=== PATIENT | female | born 1985 | race Caucasian/White ===

== ENCOUNTER 2017-05-25 12:12 | Emergency (ER) | payer OTHER, MEDICAID ==
[2017-05-25] MEDS ORDERED: CEFTRIAXONE INJ 1000 MG VIAL IM ONE (12:41)
[2017-05-25] MEDS ORDERED: AZITHROMYCIN 250 MG TABLET PO ONE (12:41)
[2017-05-25] MEDS ORDERED: LIDOCAINE 1% INJ-PF (10 MG/ML) 30 ML SDV INJ ONE (12:41)
--- NOTE | 2017-05-25 12:43 | ER Document Report ---
HPI - HPI Patient complains to provider of: abscess Onset: Yesterday Onset/Duration: Worse Quality of pain: Sharp Pain Level: 5 Context: Patient complains of abscess to right labia that started yesterday. Patient denies any fever. Patient denies any concern for sexually transmitted infection Associated Symptoms: Other - Right labial abscess. denies: Fever Exacerbated by: Movement Relieved by: Denies Similar symptoms previously: No Recently seen / treated by doctor: No - ROS ROS below otherwise negative: Yes Systems Reviewed and Negative: Yes All other systems reviewed and negative - CONSTITUTIONAL Constitutional: DENIES: Fever, Chills - CARDIOVASCULAR Cardiovascular: DENIES: Chest pain - DERM Skin Color: Normal Notes: Abscess to right labia Past Medical History - General Information source: Patient - Social History Smoking Status: Current Every Day Smoker Chew tobacco use (# tins/day): No Frequency of alcohol use: None Drug Abuse: None Family History: Reviewed & Not Pertinent Renal/ Medical History: Denies: Hx Peritoneal Dialysis Past Surgical History: Reports: Hx Orthopedic Surgery - Immunizations Hx Diphtheria, Pertussis, Tetanus Vaccination: Yes Vertical Provider Document - CONSTITUTIONAL Agree With Documented VS: Yes Exam Limitations: No Limitations General Appearance: WD/WN, No Apparent Distress - INFECTION CONTROL TRAVEL OUTSIDE OF THE [place] IN LAST 30 DAYS: No - HEENT HEENT: Atraumatic, Normocephalic - NECK Neck: Normal Inspection - RESPIRATORY Respiratory: Breath Sounds Normal, No Respiratory Distress O2 Sat by Pulse Oximetry: 98 - CARDIOVASCULAR Cardiovascular: Regular Rate, Regular Rhythm - REPRODUCTIVE Notes: Right-sided Bartholin's gland abscess measuring 3 cm diameter - MUSCULOSKELETAL/EXTREMETIES Musculoskeletal/Extremeties: MAEW - NEURO Level of Consciousness: Awake, Alert, Appropriate Motor/Sensory: No Motor Deficit - DERM Integumentary: Warm, Dry Course - Vital Signs Vital signs: Temp Pulse Resp BP Pulse Ox 98.3 F 74 20 114/69 98 05/25/17 12:17 05/25/17 12:17 05/25/17 12:17 05/25/17 12:17 05/25/17 12:17 Procedures - Incision and Drainage Right Labia Type: Simple Anesthetic type: 1% Lidocaine Blade size: 11 I&D procedure: Shurclens applied Incision Method: Incision made by scalpel Amount/type of drainage: large amount of purulent drainage Female anatomy: 1 - abscess Discharge - Discharge Clinical Impression: Abscess of Bartholin's gland Condition: Stable Disposition: HOME, SELF-CARE Instructions: Abscess ([facility]), Anti-Inflammatory Medication ([facility]), Augmentin ([facility] ), Post Incision and Drainage Additional Instructions: Return immediately for any new or worsening symptoms Followup with your primary care provider, call tomorrow to make a followup appointment Prescriptions: Amox Tr/Potassium Clavulanate [Augmentin 875-125 Tablet] 1 tab PO BID 10 Days tablet Naproxen [Naprosyn 250 Nmg Tablet] 1 tab PO BID #14 tablet Referrals: [facility] [Provider Group] - Follow up as needed
[2017-05-25 13:59] VITALS: BP 112/55
== END 2017-05-25 13:59 | disposition home or self-care (01) ==
LOC: ER 12:12
PROC: 0U9L0ZZ Drainage of Vestibular Gland, Open Approach (ICD-10-PCS; principal; 2017-05-25)
DX: N75.8 Other diseases of Bartholin's gland (principal)
CPT/HCPCS: 99283; 96372; 56420; J3490; J0696

== ENCOUNTER 2017-05-31 08:37 | Emergency (ER) | payer OTHER, MEDICAID ==
--- NOTE | 2017-05-31 09:06 | ER Document Report ---
ED Neck/Back Problem - General Chief Complaint: Back Pain Stated Complaint: BACK PAIN Time Seen by Provider: 05/31/17 09:06 Mode of Arrival: Ambulatory Information source: Patient Notes: 31-year-old female complaining of feeling like her back hardware is poking out of her low back and increased right lower back pain. She has extensive surgery with Garcia rods 5 years ago in [place] for severe scoliosis which caused her to not be able to walk. She moved to [place] and is living in the homeless long-term at this time. She is having to walk a lot because she does not have money for cab and is worried because her legs are getting weaker with some numbness below the right knee. She was told by the back surgeon when he saw her in December that she needed to have the hardware removed and she is very scared about having that done. TRAVEL OUTSIDE OF THE [place] IN LAST 30 DAYS: No - Related Data Allergies/Adverse Reactions: Sulfa (Sulfonamide Antibiotics) Allergy (Verified 05/31/17 08:40) Past Medical History - General Information source: Patient - Social History Smoking Status: Unknown if Ever Smoked Frequency of alcohol use: None Drug Abuse: None Occupation: Unemployed Lives with: Homeless - [facility] Family History: Reviewed & Not Pertinent Patient has suicidal ideation: No Patient has homicidal ideation: No Renal/ Medical History: Denies: Hx Peritoneal Dialysis Musculoskeltal Medical History: Reports Other - Scoliosis Past Surgical History: Reports: Hx Orthopedic Surgery - Garcia rods in back - Immunizations Hx Diphtheria, Pertussis, Tetanus Vaccination: Yes Review of Systems - Review of Systems Constitutional: No symptoms reported EENT: No symptoms reported Cardiovascular: No symptoms reported Respiratory: No symptoms reported Gastrointestinal: No symptoms reported Genitourinary: No symptoms reported Female Genitourinary: No symptoms reported Musculoskeletal: See HPI Skin: No symptoms reported Hematologic/Lymphatic: No symptoms reported Neurological/Psychological: No symptoms reported Physical Exam - Vital signs Vitals: Temp Pulse Resp BP Pulse Ox 98.0 F 87 18 116/78 99 05/31/17 08:40 05/31/17 08:40 05/31/17 08:40 05/31/17 08:40 05/31/17 08:40 Interpretation: Normal - General General appearance: Appears well, Alert In distress: None - HEENT Head: Normocephalic, Atraumatic Eyes: Normal Pupils: PERRL Neck: Supple - Respiratory Respiratory status: No respiratory distress Chest status: Nontender Breath sounds: Normal Chest palpation: Normal - Cardiovascular Rhythm: Regular Heart sounds: Normal auscultation Murmur: No - Abdominal Inspection: Normal Distension: No distension Bowel sounds: Normal Tenderness: Nontender Organomegaly: No organomegaly - Genitourinary External exam: Other - Vulvar and anal sensation intact - Back Back: Normal, Nontender, Tender - right proximal lumbar muscle tender, Other - hardward palpated both SI areas, no erythema. No: Vertebra tenderness - Extremities General upper extremity: Normal inspection, Nontender, Normal color, Normal ROM , Normal temperature General lower extremity: Normal inspection, Nontender, Normal color, Normal ROM , Normal temperature, Normal weight bearing. No: Luis Felipe's sign - Neurological Neuro grossly intact: Yes Cognition: Normal Orientation: AAOx4 [place] Coma Scale Eye Opening: Spontaneous [place] Coma Scale Verbal: Oriented [place] Coma Scale Motor: Obeys Commands [place] Coma Scale Total: 15 Speech: Normal Motor strength normal: LUE, RUE, LLE, RLE Sensory: Normal Knee - Reflex grade: 2 = Normal - Bilateral Ankle - Reflex grade: 2 = Normal - Bilateral - Psychological Associated symptoms: Normal affect, Normal mood - Skin Skin Temperature: Warm Skin Moisture: Dry Skin Color: Normal Course - Re-evaluation Re-evalutation: 05/31/17 10:19 hardware ok, some disc disease L5S1. Patient does not want anything for pain at this time and I will give her the referrals for orthopedic care here in [place] since she is moving to [place]. Told her about also give her a referral to pain management. 05/31/17 10:20 - Vital Signs Vital signs: Temp Pulse Resp BP Pulse Ox 98 F 82 18 115/76 99 05/31/17 10:37 05/31/17 10:37 05/31/17 10:37 05/31/17 10:37 05/31/17 10:37 Discharge - Discharge Clinical Impression: Exacerbation of chronic back pain Condition: Good Disposition: HOME, SELF-CARE Instructions: Chronic Back Pain ([facility]) Additional Instructions: over the counter motrin and tylenol for pain referral to pain management and orthopedics to er if worsening symptoms or any concerns Please complete the patient satisfaction survey if you get one, and return it.. If you do not receive a survey, then you can go to the [facility] website, [email or web address] and place your comments about your very good care. Thank you very much. It was a pleasure being your medical provider today. Referrals: JADA AVILEZ MD [ACTIVE STAFF] - Follow up as needed JONATHAN REYNA MD [NO LOCAL MD] - Follow up as needed AURORA MARTIN MD [ACTIVE STAFF] - Follow up as needed
--- NOTE | 2017-05-31 10:04 | RADIOLOGY REPORT (SQ) ---
EXAM DESCRIPTION: T SPINE AP/LAT COMPLETED DATE/TIME: 05/31/2017 9:54 am REASON FOR STUDY: check the hardware COMPARISON: None. NUMBER OF VIEWS: Two views. TECHNIQUE: AP and lateral radiographic images acquired of the thoracic spine. LIMITATIONS: None. FINDINGS: MINERALIZATION: Normal. ALIGNMENT: Normal. No scoliosis. VERTEBRAE: No fracture or bone lesion. Maintained height, normal segmentation. DISCS: No significant loss of height or significant narrowing. No large osteophytes. HARDWARE: Extensive hardware with multiple Garcia rods and screw fixation device. No fractures n oted. MEDIASTINUM AND SOFT TISSUES: Normal heart size and aortic contour. No soft tissue abnormality. VISUALIZED LUNG DWYER: Clear. OTHER: No other significant finding. IMPRESSION: No hardware fracture is identified. No acute bony process. TECHNICAL DOCUMENTATION: JOB ID: [id number] [employer]- All Rights Reserved
--- NOTE | 2017-05-31 10:05 | RADIOLOGY REPORT (SQ) ---
EXAM DESCRIPTION: L SPINE WHOLE COMPLETED DATE/TIME: 05/31/2017 9:54 am REASON FOR STUDY: check the hardware COMPARISON: None. NUMBER OF VIEWS: Five views including obliques. TECHNIQUE: AP, lateral, oblique, and sacral radiographic images acquired of the lumbar spine. LIMITATIONS: None. FINDINGS: MINERALIZATION: Osteopenia SEGMENTATION: Normal. No transitional anatomy. ALIGNMENT: Normal. VERTEBRAE: Maintained height. No fracture or worrisome bone lesion. DISCS: Degenerative disc disease L5-S1. POSTERIOR ELEMENTS: Pedicles and facets are intact. No pars defect or posterior arch defects. HARDWARE: Extensive hardware. Pedicle screws with long bridging plates attached to Garcia rods. No obvious loosening. No fractures. PARASPINAL SOFT TISSUES: Normal. PELVIS: Intact as visualized. No fractures or worrisome bone lesions. SI joints intact. OTHER: No other significant finding. IMPRESSION: No acute fracture. Hardware appears intact. TECHNICAL DOCUMENTATION: JOB ID: [id number] [employer]- All Rights Reserved
[2017-05-31 10:38] VITALS: BP 115/76
== END 2017-05-31 10:38 | disposition home or self-care (01) ==
LOC: ER 08:37
DX: M54.9 Dorsalgia, unspecified (principal); M54.5 Low back pain; G89.29 Other chronic pain
CPT/HCPCS: 72070; 72110; 99284